=== PATIENT | female | born 1945 | race Caucasian/White ===

== ENCOUNTER 2022-08-13 12:13 | Emergency (ER) | payer MEDICARE ==
[2022-08-13] MEDS ORDERED: Lidocaine 1% (PF) 30 ML VIAL ONE (12:37)
[2022-08-13] MEDS ORDERED: Boostrix 0.5 ML (Tdap) VIAL (>/=7 yrs of age) ONE (13:04)
== END 2022-08-13 13:31 | disposition home or self-care (01) ==
LOC: NAV ERS 12:13
DX: S81.811A Laceration without foreign body, right lower leg, initial encounter (principal); K21.9 Gastro-esophageal reflux disease without esophagitis; Z23 Encounter for immunization; W20.8XXA Other cause of strike by thrown, projected or falling object, initial encounter
CPT/HCPCS: 12002; 90471; 90715; J2001